=== PATIENT | male | born 1990 | race African-American/Black ===

== ENCOUNTER 2021-07-18 18:03 | Emergency (ER) | payer MEDICAID ==
[~2021-07-18] VITALS: Ht 180.3 cm; Wt 90.0 kg
[2021-07-18 18:11] VITALS: BP 190/60
== END 2021-07-19 00:25 | disposition left against medical advice (07) ==
LOC: ER 18:03
DX: R45.1 Restlessness and agitation (principal); R41.82 Altered mental status, unspecified; Z53.21 Procedure and treatment not carried out due to patient leaving prior to being seen by health care provider